=== PATIENT | male | born 1980 | race African-American/Black ===

== ENCOUNTER 2020-08-28 03:21 | Emergency (ER) | payer OTHER ==
[~2020-08-28] VITALS: Ht 185.4 cm; Wt 87.1 kg
[2020-08-28 03:23] VITALS: BP 150/80
[2020-08-28] MEDS ORDERED: AMOXICILLIN875 MG PO (03:40)
== END 2020-08-28 04:20 | disposition home or self-care (01) ==
LOC: ER 03:21
DX: J02.9 Acute pharyngitis, unspecified (principal)